=== PATIENT | female | born 1955 | race Asian ===

== ENCOUNTER 2017-05-24 07:49 | Day surgery (SDC) | payer OTHER ==
[~2017-05-24] VITALS: Ht 149.9 cm; Wt 79.9 kg
[2017-05-24 08:34] VITALS: Ht 149.9 cm; Wt 79.9 kg
[2017-05-24] MEDS ORDERED: MELO-216 PO (08:42)
[2017-05-24] MEDS ORDERED: IRBE150T21 PO (08:42)
[2017-05-24] MEDS ORDERED: VALS1TAB76 PO (08:42)
[2017-05-24] MEDS ORDERED: AMLO-147 PO (08:42)
[2017-05-24] MEDS ORDERED: NITR0.4T32 SL (08:42)
[2017-05-24] MEDS ORDERED: CLOP75TA27 PO (08:42)
[2017-05-24] MEDS ORDERED: RANI150T5 PO (08:42)
[2017-05-24] MEDS ORDERED: ASPI81TA3 PO (08:42)
[2017-05-24] MEDS ORDERED: LIDOCAINE 2% (SDV) 5 ML INJ ONE (08:46)
[2017-05-24] MEDS ORDERED: PROPOFOL 40 ML ONE (08:46)
[2017-05-24 09:10] VITALS: BP 141/67; PULSE 71; RESP 18
--- NOTE | 2017-05-24 09:57 | OPPN ---
Date/Time of Note Date/Time of Note DATE: 05/24/17 TIME: 09:54 Proc Note GI Procedure Date 05/24/17 Indication: diagnostic Pre-procedure Diagnosis rectal bleeding Post-procedure Diagnosis large rectal polyp snared bx done clipps applied cauterised Procedure Performed: Colonoscopy Surgeon see signature line Electroencephalogram Technologist none Anesthesia Type: MAC Tourniquet Time none EBL none Transfusion required none Biopsy 1: recal mass Grafts/Implants none Tubes/Drains none Complication(s) none Disposition: PACU Procedure Description colonoscopy performed under MAC large rectal polyp snared bx done hemoclipped applied cautery performed surg consult JUAN ULRICH MD May 24, 2017 09:57
[2017-05-24 10:50] VITALS: BP 124/57; PULSE 67; RESP 17
--- NOTE | 2017-05-24 13:03 | GILP ---
DATE OF PROCEDURE: NAME OF PROCEDURE: Colonoscopy and polypectomy. PREOPERATIVE DIAGNOSIS: Rectal bleeding, rule out colorectal neoplasm. POSTOPERATIVE DIAGNOSES: 1. At least 3 cm lobulated polyp noted just above the anus with infiltrating a small polypoid struc ture noted at the base of this mass. Polypectomy was performed. Biopsies were done. Hemoclips wer e applied and cauterization of the biopsy site was done. 2. Diverticulosis. 3. Moderate degree of internal and external hemorrhoids. DESCRIPTION OF PROCEDURE: After the informed written consent was obtained, the patient was asked to lie on the left lateral side. Intravenous anesthesia was given by anesthesiologist, Dr. Crane. W hen the patient became somnolent, the Olympus video colonoscope was introduced into the rectum and s cope was advanced all the way to the cecum. Occasional diverticula noted in the colon. A 3-mm poly p was noted in the mid descending colon. This was removed with a cold biopsy forceps. Scope at thi s time was withdrawn to the level of the rectum, retroflexion was performed. The morphology of the polyp was studied. There is a wide-based polyp noted with infiltrating smaller nodularity at the ba se of the polyp also noted. At this time, by using the larger snare, the polyp was removed in piece s and most of the polyp was removed. However, after removing the polyp, 2 Hemoclips were applied. The base of the polyp adjacent to the area there is a nodularity noted. This was biopsied. After t he biopsy, this was cauterized to prevent bleeding. At the end of the procedure, no bleeding noted. Hemoclips were in the right position. Moderate degree of internal and external hemorrhoids were n oted and the procedure was terminated. PLAN: Recommend wait for the pathology report. Recommend colorectal surgical consultation. Dictated By: JUAN KENNEDY/PIYUSH Conf#: [id number] DID#: [id number] CC: Josee Cesar;*EndAPPLE*
== END 2017-05-24 15:29 | disposition home or self-care (01) ==
LOC: GIL 07:49
PROVIDERS: ATTEND Internal Medicine Gastroenterology
DX: Z12.11 Encounter for screening for malignant neoplasm of colon (principal); D12.5 Benign neoplasm of sigmoid colon; K57.90 Diverticulosis of intestine, part unspecified, without perforation or abscess without bleeding; K64.8 Other hemorrhoids; K64.4 Residual hemorrhoidal skin tags; E11.9 Type 2 diabetes mellitus without complications; I10 Essential (primary) hypertension; E78.5 Hyperlipidemia, unspecified; E66.01 Morbid (severe) obesity due to excess calories; Z68.35 Body mass index [BMI] 35.0-35.9, adult
CPT/HCPCS: 45380; 88305; Z7610